=== PATIENT | female | born 1940 | race Caucasian/White ===

== ENCOUNTER 2018-11-13 08:50 | Observation (INO) | payer MEDICARE ==
[2018-11-11 08:59] VITALS: BP 146/76
[2018-11-11 09:06] LABS: BASOPHILS % (AUTO) 0.9 % (0.0-5.0); EOSINOPHILS % (AUTO) 2.1 % (0.0-8.0); HEMATOCRIT 40.9 % (36-48); LYMPHOCYTES % (AUTO) 21.5 % (21.0-51.0); MEAN CORPUSCULAR HEMOGLOBIN 29.8 pg (27.0-33.0); MEAN CORPUSCULAR HGB CONC 34.2 g/dL (32.0-36.0); MONOCYTES % (AUTO) 8.3 % (3.0-13.0); NEUTROPHILS % (AUTO) 67.2 % (40.0-77.0); PLATELET COUNT (AUTO) 148 K/uL (130-400); RED CELL DISTRIBUTION WIDTH 14.5 % (11.0-15.5); WHITE BLOOD COUNT (AUTO) 4.5 K/uL (4.8-10.8)
[2018-11-11 09:15] LABS: CREATININE 0.9 mg/dL (0.5-1.5); POTASSIUM 4.1 mmol/L (3.5-5.1)
[2018-11-11 09:18] LABS: PROTHROMBIN TIME 10.5 SEC (9.6-11.6)
[~2018-11-13] VITALS: Ht 157.5 cm; Wt 88.5 kg
[2018-11-13] VITALS (9 sets, daily range): BP systolic 127–145; BP diastolic 56–66
[~2018-11-13 08:50] MED LIST: ASPI-555 PO; CLOP75TA14 PO; HYDR12.54 PO; ISOS30TA11 PO; LEVO100T12 PO; LOSA50TA64 PO; PANT20TA12 PO; ROSU10TA27 PO; SODIUM CHLORIDE 0.9% 1000ML 1,000 ML IV SCH; TRAV2.5D OD
[2018-11-13] MEDS ORDERED: CEFAZOLIN SODIUM 1 GM VIAL ONE (11:59)
[2018-11-13] MEDS ORDERED: MIDAZOLAM HCL 1 MG/ML 2ML VIAL ONE ×3 (11:59→13:27)
[2018-11-13] MEDS ORDERED: MEPERIDINE-PF 25 MG/ML SYG ONE ×3 (12:00→13:28)
[2018-11-13] MEDS ORDERED: LIDOCAINE HCL 1% MDV 50ML VIAL ONE (12:00)
[2018-11-13] MEDS ORDERED: BUPIVACAINE/PF 0.25% 30ML VIAL IJ ONE (12:28)
[2018-11-13] MEDS ORDERED: IOHEXOL-350 50ML VIAL IV ONE (12:51)
[2018-11-13] MEDS ORDERED: OCTYL 2-CYANOACRYLATE 1 EACH TP ONE (13:52)
[2018-11-13] MEDS ORDERED: TEMAZEPAM 30 MG CAP PO PRN ×2 (14:15)
[2018-11-13] MEDS ORDERED: ONDANSETRON HCL 4 MG/2 ML VIAL IV PRN ×2 (14:15)
[2018-11-13] MEDS ORDERED: ACETAMINOPHEN-CODEINE 300/30MG TAB PO PRN ×4 (14:15)
[2018-11-13] MEDS ORDERED: ACETAMINOPHEN 325 MG TAB PO PRN ×4 (14:15)
--- NOTE | 2018-11-13 14:30 | NUR ---
ARRIVAL TO FLOOR ROOM 201 VIA BED. PT IS AAOX4 DENIES CP DENIES SOB DENIES NV. NOTED LEFT UPPER CHEST DRESSING INTACT. NO COMPLAINTS. ARRIVED WITH ORDERS, CALL LIGHT WITHIN REACH.
--- NOTE | 2018-11-13 14:40 | NUR ---
DR DE JESUS MADE AWARE OF PT ARRIVAL TO FLOOR
[2018-11-13] MEDS ORDERED: ISOS30TA6 PO (16:08)
--- NOTE | 2018-11-13 16:15 | NUR ---
STATUS SITTING UPRIGHT IN BED DENIES CP DENIES SOB DENIES NV NO COMPLAINTS PATIENT IS IN GOOD SPIRITS. AT BEDSIDE.
--- NOTE | 2018-11-13 18:40 | NUR ---
STATUS PT IS AAOX4 DENIES CP DENIES SOB DENIES NV NO COMPLAINTS. CALL LIGHT WITHIN REACH.
[2018-11-13] MEDS ORDERED: CEFAZOLIN SODIUM 1 GM VIAL IVP SCH (20:30)
[2018-11-13] MEDS ORDERED: LOSARTAN 50 MG TABLET PO SCH (21:00)
[2018-11-13] MEDS ORDERED: ATORVASTATIN CALCIUM 20 MG TABLET PO SCH (21:00)
[2018-11-13] MEDS: CEFAZOLIN SODIUM 1 GM VIAL IVP SCH (21:33)
[2018-11-14 03:00] VITALS: BP 132/60
[2018-11-14] MEDS: CEFAZOLIN SODIUM 1 GM VIAL IVP SCH (04:30)
[2018-11-14] MEDS ORDERED: CEFAZOLIN SODIUM 1 GM VIAL ONE (06:00)
[2018-11-14] MEDS ORDERED: LEVOTHYROXINE 100 MCG TABLET PO SCH (06:30)
[2018-11-14 07:00] VITALS: BP 126/62
[2018-11-14] MEDS ORDERED: DOXY100T2 PO (07:38)
[2018-11-14] MEDS ORDERED: DOXY100C2 PO (08:26)
[2018-11-14] MEDS ORDERED: CLOPIDOGREL BISULFATE 75 MG TAB PO SCH (09:00)
[2018-11-14] MEDS ORDERED: ISOSORBIDE MONO 30MG TAB SR PO SCH (09:00)
[2018-11-14] MEDS ORDERED: HYDROCHLOROTHIAZIDE 25 MG TABLET PO SCH (09:00)
[2018-11-14] MEDS ORDERED: LATANOPROST 2.5 ML DROPS OD SCH (09:00)
[2018-11-14] MEDS ORDERED: ISOSORBIDE DINITRATE 10 MG TABLET PO SCH (09:00)
[2018-11-14] MEDS ORDERED: ASPIRIN 81MG TAB.CHEW PO SCH (09:00)
[2018-11-14] MEDS ORDERED: PANTOPRAZOLE SODIUM 40 MG TABLET.DR PO SCH (09:00)
--- NOTE | 2018-11-14 10:56 | NUR ---
Patient went home with spouse in private vehicle. SAULO Cohen took patient down to main entrance in wheel chair.
== END 2018-11-14 10:45 | disposition home or self-care (01) ==
LOC: DAH 08:50 → DAHIP 08:51 → 2AH 14:30
PROVIDERS: ADMIT Internal Medicine; ATTEND Internal Medicine
DX: I49.5 Sick sinus syndrome (principal); E03.9 Hypothyroidism, unspecified; E78.5 Hyperlipidemia, unspecified; I10 Essential (primary) hypertension; I25.10 Atherosclerotic heart disease of native coronary artery without angina pectoris; I25.2 Old myocardial infarction; I45.9 Conduction disorder, unspecified; Z95.5 Presence of coronary angioplasty implant and graft; Z82.49 Family history of ischemic heart disease and other diseases of the circulatory system; Z79.899 Other long term (current) drug therapy; Z79.01 Long term (current) use of anticoagulants
CPT/HCPCS: 33208; 36415; 71046; 80048; 85025; 85610; 85730; 93005; 96374; A4218; C1785; C1894; C1898 ×2; G0378 ×26; J0690 ×3; J2175 ×3; J2250 ×3; J3490 ×2; Q9967; 99156; 99157

== ENCOUNTER → 2019-07-03 | Outpatient (CLI) | payer MEDICARE ==
[~2019-07-03] MED LIST changes: +DOXY100C2 PO; +DOXY100T2 PO; -ISOS30TA11 PO; +ISOS30TA6 PO; -ROSU10TA27 PO; +ROSU10TA28 PO; -SODIUM CHLORIDE 0.9% 1000ML 1,000 ML IV SCH
== END | disposition home or self-care (01) ==
LOC: SHCH 14:44
PROVIDERS: ATTEND Internal Medicine Cardiovascular Disease
DX: I25.119 Atherosclerotic heart disease of native coronary artery with unspecified angina pectoris (principal); I10 Essential (primary) hypertension
CPT/HCPCS: 93306

== ENCOUNTER → 2019-07-08 | Outpatient (CLI) | payer MEDICARE ==
[~2019-07-08] VITALS: Ht 157.5 cm; Wt 93.4 kg
[~2019-07-08] MED LIST changes: +REGADENOSON 0.4 MG/5 ML PF SYG IVP ONE; +REGADENOSON 0.4 MG/5 ML PF SYG IVP SCH
== END | disposition home or self-care (01) ==
LOC: SHCH 07:40
PROVIDERS: ATTEND Internal Medicine Cardiovascular Disease
DX: I10 Essential (primary) hypertension (principal); I25.119 Atherosclerotic heart disease of native coronary artery with unspecified angina pectoris
CPT/HCPCS: 78452; 93017; 96374; A9500 ×2; J2785

== ENCOUNTER → 2021-08-16 | Outpatient (CLI) | payer MEDICARE ==
[~2021-08-16] MED LIST changes: +ASPI-1443 PO; -ASPI-555 PO; -CLOP75TA14 PO; -DOXY100C2 PO; -DOXY100T2 PO; -ISOS30TA6 PO; +ISOS30TA92 PO; +METO-408 PO; +MULT-660 PO; +NITR0.4T50 SL; -PANT20TA12 PO; +PANT20TA18 PO; -REGADENOSON 0.4 MG/5 ML PF SYG IVP ONE; -REGADENOSON 0.4 MG/5 ML PF SYG IVP SCH; -TRAV2.5D OD
== END | disposition home or self-care (01) ==
LOC: SHCH 08:34
PROVIDERS: ATTEND Internal Medicine Cardiovascular Disease
DX: I08.0 Rheumatic disorders of both mitral and aortic valves (principal); I25.10 Atherosclerotic heart disease of native coronary artery without angina pectoris; I11.9 Hypertensive heart disease without heart failure; R55 Syncope and collapse; E78.5 Hyperlipidemia, unspecified; Z95.0 Presence of cardiac pacemaker
CPT/HCPCS: 93306; 93880

== ENCOUNTER 2021-09-16 07:16 | Day surgery (SDC) | payer MEDICARE ==
[2021-09-14 13:53] LABS: BASOPHILS % (AUTO) 0.6 % (0.0-5.0); EOSINOPHILS % (AUTO) 1.9 % (0.0-8.0); HEMATOCRIT 42.3 % (36-48); LYMPHOCYTES % (AUTO) 25.8 % (21.0-51.0); MEAN CORPUSCULAR HGB CONC 33.3 g/dL (32.0-36.0); MONOCYTES % (AUTO) 6.4 % (3.0-13.0); PLATELET COUNT (AUTO) 147 K/uL (130-400); RED BLOOD CELL COUNT(AUTO) 4.86 MIL/uL (4.00-5.50); RED CELL DISTRIBUTION WIDTH 13.1 % (11.0-15.5); WHITE BLOOD COUNT (AUTO) 6.8 K/uL (4.8-10.8)
[2021-09-14 14:01] LABS: CREATININE 0.8 mg/dL (0.5-1.5); POTASSIUM 3.6 mmol/L (3.5-5.1)
[2021-09-14 14:03] LABS: INR 1.05 (0.85-1.15); PROTHROMBIN TIME 11.4 SEC (9.6-11.6)
[2021-09-14 14:04] LABS: PARTIAL THROMBOPLASTIN TIME 25.1 SEC (26.3-35.5)
[2021-09-14 14:10] LABS: APPEARANCE,URINE CLEAR (CLEAR); BILIRUBIN,URINE NEGATIVE (NEGATIVE); COLOR,URINE YELLOW (YELLOW); GLUCOSE, URINE (UA) NEGATIVE (NEGATIVE); KETONES,URINE NEGATIVE (NEGATIVE); LEUKOCYTE ESTERASE ,URINE NEGATIVE (NEGATIVE); NITRATE,URINE NEGATIVE (NEGATIVE); OCCULT BLOOD,URINE NEGATIVE (NEGATIVE); PROTEIN,URINE NEGATIVE (NEGATIVE); UROBILINOGEN,URINE 0.2 mg/dL (0.2-1.0)
[2021-09-15 14:19] VITALS: BP 143/80
[~2021-09-16] VITALS: Ht 157.5 cm; Wt 95.3 kg
[2021-09-16] VITALS (11 sets, daily range): BP systolic 110–122; BP diastolic 54–65
[~2021-09-16 07:16] MED LIST changes: +0.9% NACL 500ML IV.SOLN 500 ML IV SCH; -MULT-660 PO; -PANT20TA18 PO; +PANT40TA54 PO
[2021-09-16] MEDS ORDERED: 0.9%NACL 1000ML 1,000 ML IV ONE (07:27)
[2021-09-16] MEDS ORDERED: SODIUM BICARB 50MEQ 50ML VIAL 50 ML ONE (08:24)
[2021-09-16] MEDS ORDERED: IOHEXOL-350 50ML VIAL IV ONE (08:24)
[2021-09-16] MEDS ORDERED: MEPERIDINE-PF 25 MG/ML SYG ONE (08:24)
[2021-09-16] MEDS ORDERED: LIDOCAINE HCL 400MG/20ML VIAL ONE (08:24)
[2021-09-16] MEDS ORDERED: MIDAZOLAM HCL 1 MG/ML 2ML VIAL ONE (08:24)
[2021-09-16] MEDS ORDERED: IOHEXOL 350 MG/ML 100ML INFUS..BTL IV ONE (08:24)
[2021-09-16] MEDS ORDERED: NITROGLYCERIN 50MG VIAL ONE (08:24)
[2021-09-16] MEDS ORDERED: HEPARIN 10,000 UNIT/10ML (1,000 UNIT/ML) VIAL ONE (08:24)
[2021-09-16] MEDS ORDERED: 0.9%NACL 1000ML 1,000 ML IV SCH (09:30)
== END 2021-09-16 14:10 | disposition home or self-care (01) ==
LOC: DAH 07:16
PROVIDERS: ATTEND Internal Medicine Cardiovascular Disease
DX: I25.119 Atherosclerotic heart disease of native coronary artery with unspecified angina pectoris (principal); I10 Essential (primary) hypertension; E78.5 Hyperlipidemia, unspecified; E03.9 Hypothyroidism, unspecified; Z95.5 Presence of coronary angioplasty implant and graft; Z79.01 Long term (current) use of anticoagulants; Z79.899 Other long term (current) drug therapy; Z98.890 Other specified postprocedural states
CPT/HCPCS: 36415; 71045; 80048; 81003; 85025; 85610; 85730; 93005; 93458; A4215; A4216; A4221; A4222; A4223 ×3; A4663; C1760; C1894; J1644; J2175; J2250; J3490 ×3; J7030; Q9965; Q9967; 96360; 96361; 99156; 99157

== ENCOUNTER → 2023-08-08 | Outpatient (CLI) | payer MEDICARE ==
[~2023-08-08] MED LIST changes: -0.9% NACL 500ML IV.SOLN 500 ML IV SCH
== END | disposition home or self-care (01) ==
LOC: SHCH 13:02
PROVIDERS: ATTEND Internal Medicine Cardiovascular Disease
DX: R09.89 Other specified symptoms and signs involving the circulatory and respiratory systems (principal)
CPT/HCPCS: 93880

== ENCOUNTER → 2024-10-16 | Outpatient (CLI) | payer MEDICARE ==
[~2024-10-16] MED LIST changes: -ROSU10TA28 PO; +ROSU10TA72 PO
[2024-10-16] MEDS: REGADENOSON 0.4 MG/5 ML PF SYG IVP ONE (09:43)
--- NOTE | 2024-10-20 15:01 | HMCSR ---
APPROVED REPORT Height: 5 ft 2in Weight: 201 lbs TEST INDICATIONS CAD The imaging protocol used to acquire images was Rest Tc-99m/stress Tc-99m 1 day Consent: The procedure was explained and understood by the patient. Informerd consent was witnessed Sally Grimm RN First, low dose rest was performed then high dose stress. RESTING DATA: The resting ekg shows: NSR Rest SPECT myocardial perfusion imaging was performed in supine position 66 minutes following the int ravenous injection of 10.2 mCi of Tc-99 Sestamibi. Time of rest injection: 08:19: Date: 10/16/2024 Time of rest imagin:25: Date: 10/16/2024 PHARMACOLOGIC STRESS: Pharmacologic stress test was performed by injecting regadenoson 0.4 mg IV push followed by the intra venous injection of 32.5 mCi of Tc-99 Sestamibi. Time of stress injection: 09:52: Date: 10/16/2024 Time of stress imagin:55: Date: 10/16/2024 Heart Rate at time of stress injection: 67 bpm. Gated Stress SPECT was performed 63 minutes after stress injection. The images were gated to evaluate regional wall motion and calculate left ventricular ejection fracti on. STRESS DETAILS Reason for Termination: Infusion complete Stress Symptoms: Dyspnea Max HR Achieved: 63 bpm % of APMHR Achieved: 46 Max Blood Pressure: 133/60 mmHg Stress ECG: NSR LEFT VENTRICLE Size: The left ventricular size is normal. Systolic Function:The left ventricular systolic function is normal. Wall Motion: Left ventricular wall motion is normal. The left ventricular ejection fraction was calculated to be 62%.TID = . LV PERFUSION Patchy isotope uptake with no reversible defects. Conclusion The left ventricular size is normal. The left ventricular systolic function is normal. Left ventricular wall motion is normal. Patchy isotope uptake with no reversible defects. The left ventricular ejection fraction was calculated to be 62%.
== END | disposition home or self-care (01) ==
LOC: SHCH 07:36
PROVIDERS: ATTEND Internal Medicine Cardiovascular Disease
DX: I25.10 Atherosclerotic heart disease of native coronary artery without angina pectoris (principal); R06.00 Dyspnea, unspecified; I10 Essential (primary) hypertension
CPT/HCPCS: 78452; 93017; J2785; A9500 ×2